=== PATIENT | female | born 1990 | race Caucasian/White ===

== ENCOUNTER 2016-06-02 08:11 | Emergency (ER) | payer OTHER ==
[2016-06-02] MEDS ORDERED: LEVOTHYROXINE0.05 MG PO (08:25)
[2016-06-02] MEDS ORDERED: SPRINTEC 35 MCG1 TAB PO (08:25)
[2016-06-02] MEDS ORDERED: ZOFRAN ODT4 MG PO (11:05)
[2016-06-02 11:13] VITALS: BP 105/65
== END 2016-06-02 11:10 | disposition home or self-care (01) ==
LOC: ED 08:11
DX: E86.0 Dehydration (principal); R11.0 Nausea; R51 Headache
CPT/HCPCS: J7120

== ENCOUNTER → 2016-12-21 | Outpatient (CLI) | payer OTHER ==
[~2016-12-21] MED LIST: LEVOTHYROXINE0.05 MG PO; SPRINTEC 35 MCG1 TAB PO; ZOFRAN ODT4 MG PO
== END ==
LOC: LAB 08:39
DX: E03.9 Hypothyroidism, unspecified (principal)

== ENCOUNTER → 2017-01-18 | Outpatient (CLI) | payer OTHER | LOC: LAB 16:52 | DX: R30.0 Dysuria (principal) ==

== ENCOUNTER → 2017-04-19 | Outpatient (CLI) | payer OTHER | LOC: LAB 11:47 | DX: E03.9 Hypothyroidism, unspecified (principal); Z88.1 Allergy status to other antibiotic agents; Z88.0 Allergy status to penicillin; Z88.7 Allergy status to serum and vaccine ==

== ENCOUNTER → 2017-07-19 | Outpatient (CLI) | payer OTHER | LOC: LAB 17:51 | DX: E03.9 Hypothyroidism, unspecified (principal) ==

== ENCOUNTER → 2018-02-15 | Outpatient (CLI) | payer OTHER ==
[2018-02-15 08:58] LABS: EOS # 0.4 (0.04-0.40); EOS % 6.7 % (1.0-5.0); HEMATOCRIT 41.3 % (37.0-47.0); HEMOGLOBIN 13.7 g/dL (12.5-16.0); LYMPH# 1.8 (1.50-4.00); MEAN CELL VOLUME 94 fl (78-100); MEAN CORPUSCULAR HEMOGLOBIN 31 pg (27-31); MEAN CORPUSCULAR HGB CONC 33 g/dL (33-37); MEAN PLATELET VOLUME 10.4 fl (7.4-10.4); MONO # 0.3 (0.20-0.80); NEU # 3.1 (1.40-6.50); PLATELET COUNT 248 K/mm3 (130-400); RED BLOOD COUNT 4.38 M/mm3 (4.10-5.30); RED CELL DISTRIBUTION WIDTH 12.9 % (11.5-14.5); WHITE BLOOD COUNT 5.7 K/mm3 (4.8-10.8)
[2018-02-15 09:11] LABS: CALCIUM 9.2 mg/dL (8.4-10.2); POTASSIUM 3.7 mmol/L (3.6-5.0); TOTAL BILIRUBIN 0.6 mg/dL (0.2-1.3); TOTAL PROTEIN 6.6 g/dL (6.3-8.2)
== END ==
LOC: LAB 08:32
PROVIDERS: Family Medicine
DX: Z00.00 Encounter for general adult medical examination without abnormal findings (principal); E03.9 Hypothyroidism, unspecified